=== PATIENT | female | born 1955 | race Caucasian/White ===

== ENCOUNTER → 2021-06-20 | Outpatient (CLI) | payer MEDICARE, OTHER ==
--- NOTE | 2021-06-20 10:45 | CT ---
EXAMINATION TYPE: High resolution CT chest DATE OF EXAM: 06/20/2021 COMPARISON: None HISTORY: 66-year-old female J84.9, pulmonary disease, ILD. TECHNIQUE: Thin cut axial scanning of the chest utilizing 1 mm slice thickness and 1 cm gap without I V contrast per HRCT protocol. Both prone and supine imaging is performed. CT DLP: 134 mGycm Automated exposure control for dose reduction was used. FINDINGS: Heart normal size without pericardial effusion. LAD and RCA coronary artery calcifications are presen t. Aorta normal caliber with conventional arch vessel branching anatomy. There is a borderline to mildly enlarged 1.1 cm low right paratracheal lymph node. Prominent but not enlarged 1.1 cm subcarinal lymph node. 5 mm medial basilar right lower lobe pulmonary nodule, axial image 33. 5 mm posterior basilar pulmonary nodule in the right common axial image 37. Technique calcified granuloma posteromedial right upper lobe, axial image 10. There is some minimal bibasilar bronchiolectasis. Some minimal subpleural reticular change. Minimal p atchy groundglass in the lower lungs improves and becomes dependent on the prone images. No dominant groundglass, honeycombing, thickening of the bronchovascular bundles, tree-in-bud opacities, dominant cystic change. No consolidation or pleural effusion. Possible tiny hiatal hernia. Visualized upper abdomen shows no gross abnormality. Bones: At least moderate degenerative disc disease visualized lower third thoracic spine. IMPRESSION: 1. VERY MINIMAL LOWER LUNG BRONCHIOLECTASIS, PROBABLY CHRONIC POSTINFLAMMATORY CHANGE. MINIMAL GROUND GLASS CHANGE APPEARS TO RELATE TO SUBSEGMENTAL ATELECTASIS (RATHER THAN PNEUMONITIS) WHEN CORRELATING WITH PRONE IMAGING. NO ADDITIONAL SPECIFIC FINDINGS OF INTERSTITIAL LUNG DISEASE. 2. A COUPLE RIGHT-SIDED PULMONARY NODULES MEASURING UP TO 5 MM AND A PORT SIZE 1.1 CM PARATRACHEAL LYMPH NODE. [address] FOLLOW-UP CT TO REASSESS. 3. LAD AND RCA CORONARY ARTERY CALCIFICATIONS.
== END | disposition home or self-care (01) ==
LOC: RADCTMAIN 08:59
PROVIDERS: ATTEND Internal Medicine Critical Care Medicine
DX: J47.9 Bronchiectasis, uncomplicated (principal); R91.8 Other nonspecific abnormal finding of lung field; I25.10 Atherosclerotic heart disease of native coronary artery without angina pectoris
CPT/HCPCS: 71250

== ENCOUNTER → 2022-02-09 | Outpatient (CLI) | payer MEDICARE, OTHER ==
--- NOTE | 2022-02-10 11:26 | CT ---
EXAMINATION TYPE: CT chest wo con CT DLP: 439.9 mGycm, Automated exposure control for dose reduction was used. DATE OF EXAM: 02/09/2022 6:36 PM COMPARISON: CT chest 06/20/2021 CLINICAL INDICATION:Female, 66 years old with history of J84.9 INTERSTITIAL PULMONARY DISEASE, Inters titial pulmonary disease TECHNIQUE: Multiple axial images were obtained through the chest. Sagittal and coronal reformats were created for review. Contrast used: none. Oral contrast used: none. FINDINGS: LUNGS/ PLEURA: There is no evidence of interstitial thickening, significant groundglass opacity, lesa ycombing or architectural distortion in the lungs. No bronchiectasis. No acute area of infiltrative o r consolidative change. Subsegmental atelectasis is present in the lung bases. Partially visualized superior segment left lower lobe pulmonary nodule series 4 image 13 slightly cher undglass measuring 6 mm was previously more cystic. Stable medial right lower lobe nodule measuring 4 mm. The more basilar pulmonary nodule not definitel y captured with slice selection on this exam. AIRWAY: Similar mild bronchial wall thickening compared to prior. There is also stable appearance of the bronchiectasis predominantly in the lower lungs. HEART: The heart is mildly enlarged for size wit h coronary artery atherosclerosis. MEDIASTINUM: No gross evidence of adenopathy. Small hiatal hernia suggested. VASCULATURE: No aortic aneurysm. Scattered atherosclerosis of the arterial vasculature. MUSCULOSKELETAL: No acute osseous abnormalities, scattered multilevel disc degeneration changes. Left shoulder arthroplasty changes. SOFT TISSUES/LYMPH NODES: Unremarkable. LOWER NECK: No significant findings. UPPER ABDOMEN: No significant findings. IMPRESSION: 1. No evidence for interstitial lung disease. There is mild stable bronchiectasis and bronchial wall thickening dating back to 06/20/2021. 2. Mild cardiomegaly with coronary atherosclerosis.
== END | disposition home or self-care (01) ==
LOC: RADCTMAIN 18:16
PROVIDERS: ATTEND Internal Medicine Critical Care Medicine
DX: J47.9 Bronchiectasis, uncomplicated (principal); I25.10 Atherosclerotic heart disease of native coronary artery without angina pectoris; I51.7 Cardiomegaly; J98.4 Other disorders of lung
CPT/HCPCS: 71250

== ENCOUNTER → 2022-04-06 | Outpatient (CLI) | payer MEDICARE, OTHER ==
[2022-04-06 18:52] LABS: African American GFR (CKD) 48.8 (60.0-200.0); Blood Urea Nitrogen 28.4 mg/dL (9.0-27.0); Non-African American GFR(CKD) 42.1 (60.0-200.0)
== END | disposition home or self-care (01) ==
LOC: LABWHC1 11:29
PROVIDERS: ATTEND Ophthalmology
DX: H53.2 Diplopia (principal)
CPT/HCPCS: 36415; 82565; 84445; 84520; 86376; 86800

== ENCOUNTER → 2022-04-13 | Outpatient (CLI) | payer MEDICARE, OTHER ==
--- NOTE | 2022-04-14 19:57 | MR ---
EXAMINATION TYPE: MR brain/orbits wo/w con DATE OF EXAM: 04/13/2022 COMPARISON: None HISTORY: Double vision. TECHNIQUE: Multiplanar, multisequence images of the brain and brainstem is performed without and with IV contras t, utilizing 7.5 mL intravenous Gadavist . Special sequences for the optic nerves were obtained inclu ding pre and postcontrast imaging. FINDINGS: Diffusion weighted images demonstrate no evidence of a recent infarct or other diffusion ab normality. There is no extra-axial fluid collection or significant white matter signal abnormality. The ventricular system and cisternal spaces are normal in size and appearance. The brain volume is age appropriate. Few punctate deep white matter high T2 signal foci are present Midline structures demonstrate normal morphology. The craniocervical junction appears within normal limits. Post contrast images demonstrate no abnormal enhancement. The dural venous sinuses appear pa tent. The visualized sinuses are clear and the globes are intact. The optic nerves are symmetrical bilaterally. No abnormal postcontrast enhancement. The optic chiasm is within normal limits. Pituitary gland is in within normal limits. IMPRESSION: 1. No intracranial mass or abnormality involving the optical nerves. Finding to correlate with patien t's double vision. 2. Minimal nonspecific white matter changes, likely secondary to small vessel ischemic disease.
== END | disposition home or self-care (01) ==
LOC: RADMRIMAIN 19:32
PROVIDERS: ATTEND Ophthalmology
DX: R90.82 White matter disease, unspecified (principal); H53.2 Diplopia
CPT/HCPCS: 70543; 70553; A9585